=== PATIENT | female | born 1940 | race Caucasian/White ===

== ENCOUNTER → 2017-05-31 | Outpatient (CLI) | payer MEDICARE, OTHER ==
[~2017-05-31] MED LIST: ASPIRIN 81MG TA81 MG PO; CALTRATE PO; CENTRUM SILVER1 TAB PO; CITRUCEL500 MG PO; FIORICET1 CAP PO; HYDROCHLOROTH12.5 M1 PO; NORVASC 10MG. T10 MG PO; SYNTHROID 0.0.075 MG PO; TRADJENTA5 MG PO; TRICOR 145 MG145 MG PO; TYLENOL/COD #41 EAC1 PO; VITAMIN B125000 MCG SL; VITAMIN C500 M1 PO; VITAMIN D31000 IU PO; XALATAN 0.005%2.5 ML OP; [UNRECOGNIZED DRUG - OTHER] PO
--- NOTE | 2017-05-31 16:24 | RADIOLOGY REPORT PS360 ---
BONE DENSITOMETRY(HIP:LT SPINE HISTORY: POST MENOPAUSAL ORDERING PHYSICIAN: Lucia Treviño APRN PATIENT AGE: 77 years COMPARISON: None FINDINGS: The BMD measured at the forearm radius 33% is 0.656 g/sq cm with a T score of -2.6. This is consistent with osteoporosis with high fracture risk. Pharmacological treatment he started. Lumbar spine density not accurate due to sclerosis of L3 and L4. A shunt has had prior hip replacement. IMPRESSION: Osteoporosis. Recommend follow-up exam May 2018
--- NOTE | 2017-06-03 09:48 | RADIOLOGY REPORT PS360 ---
DIG MAMM-SCREEN TIARA W/CAD CAD Screening ORDERING PHYSICIAN : Lucia Treviño APRN PATIENT AGE: 77 years GENDER: Female COMPARISON: Previous mammograms: January 31 August 2012 INDICATION: Routine screening 77-year-old. No hormones no new complaints. Family history. Sister with breast cancer age 67. Also aunt TECHNIQUE: Standard CC and MLO images were obtained. R2 CAD reviewed. At it MLO views bilateral FINDINGS: Lower density breast with minimal fibroglandular elements. No dominant mass nor suspicious calcification. No new areas of concern. CAD highlights no areas of, concern either. RIGHT BREAST: Stable mammogram no new areas concern. LEFT BREAST: Very small area of density upper-outer quadrant left breast is stable since previous studies 2014 2003 IMPRESSION:... Stable bilateral mammogram. No areas of significant concern BI-RADS CATEGORY: 1_Negative RECOMMENDED FOLLOWUP: 12M 12 MONTH FOLLOW-UP (A letter has been sent to the patient regarding results of the study.)
== END ==
LOC: RAD 15:28
DX: Z78.0 Asymptomatic menopausal state (principal); Z12.31 Encounter for screening mammogram for malignant neoplasm of breast
CPT/HCPCS: G0202

== ENCOUNTER → 2017-08-10 | Outpatient (CLI) | payer MEDICARE, OTHER ==
[~2017-08-10] MED LIST changes: +AUGMENTIN1 TA1 PO; +AZELASTINE137 MCG/SP; +CARDIZEM CD240 MG PO; +CARDURA8 MG PO; +CENTRUM ADULTS1 EACH PO; +DILTIAZEM ER 1120 MG PO; +DILTIAZEM HCL90 MG PO; +FUROSEMIDE 20MG20 MG PO; +LEVAQUIN500 MG PO; +LIPITOR40 MG PO; +LOSARTAN POTAS100 MG PO; +NATURAL B COMPL PO; +OMEPRAZOLE20 MG PO; +Sodium Bicarbo650 MG NG
[2017-08-10 13:09] LABS: CORONAVIRUS 229E NOT DETECTED (NOT DETECTE); CORONAVIRUS HKU 1 NOT DETECTED (NOT DETECTE); CORONAVIRUS NL63 NOT DETECTED (NOT DETECTE); CORONAVIRUS OC43 NOT DETECTED (NOT DETECTE); RHINOVIRUS/ENTEROVIRUS NOT DETECTED (NOT DETECTE)
[2017-08-10 13:48] LABS: LYMPH # 0.6 K/mm3 (0.7-4.5); LYMPH % 10.9 % (10-50.0)
[2017-08-10 13:59] LABS: HEMOGLOBIN 9.7 g/dL (12.2-16.2)
[2017-08-10 14:09] LABS: BUN 26 mg/dL (7-18)
[2017-08-10 14:15] LABS: GFR (ESTIMATED) 19 ML/MIN (59-)
[2017-08-11 08:43] LABS: Hematocrit 28.7 % (34.0-46.6)
[2017-08-11 09:37] LABS: Vitamin B12 843 pg/mL (211-946)
[2017-08-11 10:39] LABS: Iron 22 ug/dL (27-139); Iron Saturation 10 % (15-55); UIBC 194 ug/dL (118-369)
[2017-08-11 18:40] LABS: Folate, RBC 2136 ng/mL (>498)
== END ==
LOC: CARL-LAB 09:31
PROVIDERS: Internal Medicine Adolescent Medicine; Internal Medicine Nephrology
DX: J18.0 Bronchopneumonia, unspecified organism (principal); I10 Essential (primary) hypertension; R80.9 Proteinuria, unspecified; N18.4 Chronic kidney disease, stage 4 (severe); R31.9 Hematuria, unspecified

== ENCOUNTER 2017-08-11 12:01 | Inpatient (IN) | payer MEDICARE, OTHER ==
[~2017-08-11] VITALS: Ht 165.1 cm; Wt 78.1 kg
[~2017-08-11 12:01] MED LIST changes: -AUGMENTIN1 TA1 PO; -AZELASTINE137 MCG/SP; -CARDIZEM CD240 MG PO; -CARDURA8 MG PO; -CENTRUM ADULTS1 EACH PO; -DILTIAZEM ER 1120 MG PO; -DILTIAZEM HCL90 MG PO; -FUROSEMIDE 20MG20 MG PO; -LEVAQUIN500 MG PO; -LIPITOR40 MG PO; -LOSARTAN POTAS100 MG PO; -NATURAL B COMPL PO; -OMEPRAZOLE20 MG PO; -Sodium Bicarbo650 MG NG
[2017-08-11 13:51] VITALS: BP 163/74
--- NOTE | 2017-08-11 14:03 | PHARMACY CLINIC NOTE ---
Patient Demographics Patient Demographics Admission date: 08/11/17 Date: 08/11/17 Time: 1402 Allergies Coded Allergies: tramadol (Mild, 11/05/16) HEIGHT- FT: 5 IN: 5.00 K.[id number] VTE General Information Disclaimer The following section includes nursing documentation that has been pulled in for pharmacy review. VTE prophylaxis [id number] VTE prophylaxis ordered? Yes Type of prophylaxis/treatment: JUAN C at 1402
[2017-08-11 14:10] LABS: HEMOGLOBIN 9.4 g/dL (12.2-16.2); LYMPH # 0.5 K/mm3 (0.7-4.5); LYMPH % 6.2 % (10-50.0)
[2017-08-11] MEDS ORDERED: DILTIAZEM ER 1120 MG PO (14:39)
[2017-08-11] MEDS ORDERED: CARDURA8 MG PO (14:41)
[2017-08-11] MEDS ORDERED: LIPITOR40 MG PO (14:42)
[2017-08-11] MEDS ORDERED: LOSARTAN POTAS100 MG PO (14:42)
[2017-08-11] MEDS ORDERED: Sodium Bicarbo650 MG NG (14:44)
[2017-08-11] MEDS ORDERED: FUROSEMIDE 20MG20 MG PO (14:45)
[2017-08-11] MEDS ORDERED: CENTRUM ADULTS1 EACH PO (14:46)
[2017-08-11] MEDS ORDERED: NATURAL B COMPL PO (14:48)
[2017-08-11] MEDS ORDERED: OMEPRAZOLE20 MG PO (14:48)
[2017-08-11 14:49] LABS: NEUTROPHILS 87 % (42-76)
[2017-08-11 15:35] VITALS: BP 146/69
--- NOTE | 2017-08-11 15:35 | ST BEDSIDE DYSPHAGIA EVAL ---
SUBJECTIVE-DYSPHAGIA Date: 08/11/17 Time: 1514 Eval Type: Initial Certification - Admitted Date: 08/11/17 Primary Diagnosis: DEHYDRATION Reason for Consult: DYSPHAGIA Pt/Caregiver Concerns: DETERMINE LEAST RESTRICTIVE DIET Onset of symptoms- MEDICAL HX UNKNOWN Symptoms have worsened? NO improved? NO resolved? NO since onset. Current Diet: REGULAR/THINS Allergies Coded Allergies: tramadol (Mild, 11/05/16) Uncoded Allergies: OTHER (08/11/17) A BLOOD PRESSURE MEDICINE BUT ISNT SURE THE NAME OF THE MEDICINE Home Medications Reported Medications Levothyroxine Sodium (Synthroid 0.075MG) 150 MCG PO DAILY CHOLECALCIFEROL (VITAMIN D3) (Vitamin D) 2,000 IUNITS PO BID Ascorbic Acid (Vitamin C) 500 MG PO BID Latanoprost (Xalatan 0.005% Soln,Oph) 1 DROP OP QHS DILTIAZEM HCL (Diltiazem 24HR Cd) 90 MG PO TID Doxazosin Mesylate (Doxazosin 4MG Tablet) 8 MG PO QHS Losartan Potassium (Losartan 100MG) 100 MG PO DAILY Atorvastatin Calcium (Atorvastatin) 20 MG PO DAILY Sodium Bicarbonate (Sodium Bicarbonate 650 Mg Tablet) 650 MG NG BID Furosemide (Furosemide) 20 MG FT PRN PRN FLUID Multivitamin/Iron/Folic Acid (Centrum Adults Tablet) 1 EACH PO DAILY B COMPLEX WITH VITAMIN C (Super B Complex-Vitamin C) 1 TAB PO DAILY Omeprazole (Omeprazole 20MG) 20 MG PO DAILY CA CARB 500MG/VIT D 200MG (Oyster Shell Calcium-Vit D Tab) 600 MG PO BID MULTIVIT,THER IRON,CA,FA & MIN (Sm Therapeutic M Tablet) 1 TAB PO DAILY ASPIRIN (Aspirin) 81 MG PO DAILY CYANOCOBALAMIN (VITAMIN B-12) (B-12) 5,000 MCG SL ONCE WEEKLY Acetaminophen W/Codeine #4 (Tylenol With Codeine #4 Tablet) 1 EACH PO Q4HP PRN PAIN Is this assessment r/t stroke? No OBJECTIVE COMMUNICATION/COGNITION Barriers to communication/cog? No ORAL-MOTOR STRUCTURE/FUNCTION Structure/Function WFL: Labial, Buccal, Lingual, Velar, Mandibular. Facial Asymmetry None Laryngeal Function Strong: Voluntary Cough, Throat Clearing. Vocal Quality Normal Dentition Good dentition RESPIRATORY STATUS/HISTORY Is resp status/hx a concern? No DYSPHAGIA SIGNS W/CONSISTENCY Any S/S of Dysphagia? No ASSESSMENT/PLAN ASSESSMENT Impression Ms. Steinberg, a 77 year old female, was referred for a bedside evaluation of swallowing by her physician, Dr. Verdugo. Ms. Steinberg reports no difficulties with swallowing at home prior to admission. She reports no difficulties at this time. Ms. Steinberg was given the following consistencies: thins via straw and open cup and regular. No signs of dysphagia were noted. At this time, diet modifications or therapy is warranted. Should problems continue, a MBS will need to be ordered. Thank you for this consult. PLAN RECOMMENDATIONS Further skill serv. indicated No SWALLOW GUIDELINES Standard Aspiration Prec. PATIENT/CAREGIVER EDUCATION Able-recall/restate what told? Yes RN educated on Diet Consistency Rehab Medicare G Code Plan Medicare/G Code eligible? Yes Therapy Discipline Plan: MANAGER UNDERWRITING PLAN OF CARE G Code Current Status: SWALLOWING (G8996) Current Status Modifier: 1%-19% IMPAIRED (CI) G Code Goal Status: SWALLOWING (G8997) Goal Status Modifier: 1%-19% IMPAIRED (CI) G Code Discharge Status: SWALLOWING (G8998) Discharge Status Modifier: 1%-19% IMPAIRED (CI) If pt's [facility] benefits exhausted If patient's Medicare benefits are exhausted, please review: #Min Spent: 15 at [phone]
[2017-08-11 16:00] VITALS: BP 132/80
--- NOTE | 2017-08-11 16:32 | RADIOLOGY REPORT PS360 ---
CHEST(2 VIEWS-NOT PORTABLE) HISTORY: Cough R/O PNEUMONIA ORDERING PHYSICIAN: Jase Verdugo MD PATIENT AGE: 77 years COMPARISON: None available FINDINGS: The cardiomediastinal silhouette and pulmonary vascularity are within normal limits. Port-A-Cath is present from left subclavian approach with the tip in region superior vena cava. There is increased density superior to the port. This millimeters part of the catheter. Follow-up suggested for confirmation as a underlying nodular lesion could be obscured. Increased markings are present in the right lower lung zone consistent with an area of atelectasis or infiltrate. The remaining lungs are clear. Degenerative change thoracic spine. IMPRESSION: Atelectasis or infiltrate in the right infrahilar region
--- NOTE | 2017-08-11 17:32 | HISTORY AND PHYSICAL REPORT ---
Demographics: Admit date: 08/11/17 Chief complaint: Cough PRIMARY DIAGNOSIS: DEHYDRATION Allergies: Coded Allergies: tramadol (Mild, 11/05/16) Uncoded Allergies: OTHER (08/11/17) A BLOOD PRESSURE MEDICINE BUT ISNT SURE THE NAME OF THE MEDICINE History of present illness: History of present illness: 77 yr old female with history of HTN, DM, rectal cancer and CKD direct admitted today for pneumonia with failure of outpatient therapy. She was seen in office about 10 days ago, started on Augmentin but she reports that she only took about 5 days of it because she started having hip/back pain and thought maybe it was from the antibiotics. She was seen again 2 days ago and given an injection of rocephin and steroids IM but reports no improvement today. Reports chest pain associated with coughing and difficulty resting due to cough. Labs yesterday revealed increased creatinine above baseline and she admitted for hydration and further monitoring as well. Past medical history: Immunization HX DT/Tetanus Unknown Flu Refused Pneumonia Received In Past TB Test in last year No General CAD? No Angina: No MA: No Hypertension? Yes Hyperlipidemia? No CHF? No DVT? No PE? No COPD? Yes Asthma? No Anemia? No GERD? No Gastric ulcers? No GI Bleed? Yes Hernia? No Thyroid Problems? Yes Hypothyroidism? No CVA? No Seizures? No Diabetes? No Insulin Dependent: No Insulin Pump: No Home FSBS? Yes Renal Insuffiency? No UTI? No Stones? No BPH? No GB Disease: No Nephritic Syndrome? No Asplenia? No Hepatitis? No Sickle Cell Disease? No Arthritis? Yes Migraines? No Cataracts? No Glaucoma? Yes MRSA? No HIV? No TB? No Anxiety? No Depression? No Cancer? Yes Site: COLON; BASAL CELL CARCINO Past Surgical HX Previous Surgery?Y HYSTERECTOMY GALLBLADDER LEFT HIP RIGHT HIP CANCER Resection of rectal cancer Current home meds: Reported Medications Levothyroxine Sodium (Synthroid 0.075MG) 150 MCG PO DAILY CHOLECALCIFEROL (VITAMIN D3) (Vitamin D) 2,000 IUNITS PO BID Ascorbic Acid (Vitamin C) 500 MG PO BID Latanoprost (Xalatan 0.005% Soln,Oph) 1 DROP OP QHS DILTIAZEM HCL (Diltiazem 24HR Cd) 90 MG PO TID Doxazosin Mesylate (Doxazosin 4MG Tablet) 8 MG PO QHS Losartan Potassium (Losartan 100MG) 100 MG PO DAILY Atorvastatin Calcium (Atorvastatin) 20 MG PO DAILY Sodium Bicarbonate (Sodium Bicarbonate 650 Mg Tablet) 650 MG NG BID Furosemide (Furosemide) 20 MG FT PRN PRN FLUID Multivitamin/Iron/Folic Acid (Centrum Adults Tablet) 1 EACH PO DAILY B COMPLEX WITH VITAMIN C (Super B Complex-Vitamin C) 1 TAB PO DAILY Omeprazole (Omeprazole 20MG) 20 MG PO DAILY CA CARB 500MG/VIT D 200MG (Oyster Shell Calcium-Vit D Tab) 600 MG PO BID MULTIVIT,THER IRON,CA,FA & MIN (Sm Therapeutic M Tablet) 1 TAB PO DAILY ASPIRIN (Aspirin) 81 MG PO DAILY CYANOCOBALAMIN (VITAMIN B-12) (B-12) 5,000 MCG SL ONCE WEEKLY Acetaminophen W/Codeine #4 (Tylenol With Codeine #4 Tablet) 1 EACH PO Q4HP PRN PAIN Social Hx: Smoking HX Are you/the child exposed to second-hand smoke: No Alcohol Alcohol: No Hx of Drug Use Drug Use? No Patien't marital status is Patient's support system is fair Comment: Lives alone Review of systems: Constitutional malaise, weakness. No: fever. Eyes No: no symptoms reported. Ears, Nose, Mouth, Throat No ear pain, nose discharge, nose congestion Respiratory see HPI. Cardiovascular edema (chronic right leg) Gastrointestinal/Abdominal No no symptoms reported Genitourinary frequency (chronic incontinence). Musculoskeletal back pain. Skin No: no symptoms reported. Neurological Yes: weakness. Psychiatric No: no symptoms reported. Exam: Lab data for last 24 hours: Laboratory Tests 08/11/17 1352: Sodium 142, Potassium 4.0, Chloride 106, Carbon Dioxide 23, BUN 31 H, Creatinine 2.7 H, Estimated Creat Clear 21 L, Estimated GFR (MDRD) 17 *L, Glucose 159 H, Calcium 8.5, WBC 8.0, RBC 2.99 L, Hgb 9.4 L, Hct 28.3 L, MCV 94.8, RDW 12.8, Plt Count 179, MPV 7.8, Gran % 86.7 H, Gran # 6.9, Total Counted 100, Lymphocytes % 6.2 L, Monocytes % 6.2, Eosinophils % 0.6, Basophils % 0.3, Neutrophils 87 H, Lymphocytes (Manual) 5 L, Lymphocytes # 0.5 L, Monocytes (Manual) 8, Monocytes # 0.5, Eosinophils # 0.1, Basophils # 0.0, Platelet Estimate NORMAL, PUBS MCHC 33.3, MCH 31.6 H, Mycoplasma pneumon IgM NON-REACTIVE Microbiology 08/11 1645 SPUTUM: Sputum Culture - RECD 08/11 1645 SPUTUM: Gram Stain - RECD 08/11 1645 SPUTUM: Organism ID (Sequencing 2)(DELVIS) - ORD 08/11 1352 BLOOD: Anaerobic Blood Culture - RECD 08/11 1352 BLOOD: Aerobic Blood Culture - RECD 08/11 1352 BLOOD: Anaerobic Blood Culture - RECD 08/11 1352 BLOOD: Aerobic Blood Culture - RECD Admission vital signs: 1ST Vital Signs Result Date Time Pulse Ox 94 08/11 1351 B/P 163/74 08/11 1351 O2 Delivery ROOM AIR 08/11 1351 Temp 98.3 08/11 1351 Pulse 90 08/11 1351 Resp 22 08/11 1351 O2 Flow Rate 2 08/11 1642 Additional information: Pleasant female, up on side of bed which she states is more comfortable than lying back. Mucous membranes are slightly dry. Heart rhythm is regular, pansystolic murmur. Lungs with bilateral rhonchi, loose congested cough. Abdomen soft, BS +, + ostomy output. Trace lower extremity edema. No neurologic deficits , oriented x 3 Plan: Problem List 1. CAP (community acquired pneumonia) Assessment/Plan Start renally dosed levaquin IV, sputum and blood cultures, pulmonary toilet. Gentle rehydration and monitor creatinine. Hold diuretics 2. 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 Monitor 3. Dehydration 4. CKD (chronic kidney disease) stage 4, GFR 15-29 ml/min Plan: see above at 1737
[2017-08-11 19:15] VITALS: BP 135/65
[2017-08-11 19:57] VITALS: BP 135/65
[2017-08-11] MEDS ORDERED: CARDIZEM CD240 MG PO (20:41)
[2017-08-12] VITALS (7 sets, daily range): BP systolic 112–153; BP diastolic 34–57
[2017-08-12 06:57] LABS: LYMPH # 0.7 K/mm3 (0.7-4.5); LYMPH % 14.7 % (10-50.0)
[2017-08-12 07:16] LABS: HEMOGLOBIN 7.6 g/dL (12.2-16.2)
--- NOTE | 2017-08-12 07:42 | ACUTE CARE PROGRESS NOTE (QUA) ---
Progress Notes Subjective Date 08/12/17 Time 0742 Note Overall patient states she feels better, is breathing more easily. Eating breakfast well. Lungs are clear, no rhonchi, no crackles. No edema noted. Patient is alert and talkative. Assessment/Plan Problem List 1. CAP (community acquired pneumonia) 2. Anemia, iron deficiency 3. Dehydration 4. CKD (chronic kidney disease) stage 4, GFR 15-29 ml/min Patient condition Improving Plan: continue current care, low blood counts noted. Anemia of renal disease. Check tomorrow. Try to withhold transfusion if possible. This inpt stay is expected to cross 2 MNs from start of care Yes at 0742
[2017-08-12] MEDS ORDERED: DILTIAZEM HCL90 MG PO (08:23)
[2017-08-12] MEDS ORDERED: AZELASTINE137 MCG/SP (09:33)
[2017-08-12] MEDS ORDERED: AUGMENTIN1 TA1 PO (09:35)
--- OUTSIDE RECORDS SUMMARY | 2017-08-12 12:21 | External Medical Summary Rpt ---
Author Author [facility] Organization [facility] Address Unknown Phone Unavailable Care Team Providers Care Central Supply Clerk Name Role Phone PHY, LISTED PCP Unavailable Encounter [facility] [id number] Date(s): 07/18/17 - 07/21/17 [facility] [address] [place] [address]- [phone] Discharge Disposition: OP Self Care or Home Attending Physician: KARELY REID MD-NEP Admitting Physician: KARELY REID MD-NEP Referring Physician: KARELY REID MD-NEP Reason for Visit CHRONIC KIDNEY DISEASE, STAGE 4 (SEVERE) Vital Signs Most recent 1 2 3 to oldest [Reference Range]: Temperature, 97.6 Deg F Fahrenheit (07/21/17 10:21 [96.8-99.7 AM) Deg F] Clinical 36.4 Deg C Temperature, (07/21/17 10:21 C AM) Peripheral 72 bpm (07/21/17 Pulse Rate 10:21 AM) [60-100 bpm] Heart Rate 62 bpm 64 bpm 62 bpm Monitored (07/21/17 2:45 PM) (07/21/17 2:30 PM) (07/21/17 2:15 PM) [60-100 bpm] Respiratory 16 Breaths/Min 16 Breaths/Min 16 Breaths/Min Rate [14-20 (07/21/17 12:40 (07/21/17 12:35 (07/21/17 12:30 Breaths/Min] PM) PM) PM) Blood 153/74 mmHg 160/74 mmHg 174/75 mmHg Pressure *HI* *HI* *HI* [90-140/60-9 (07/21/17 2:45 PM) (07/21/17 2:30 PM) (07/21/17 2:15 PM) 0 mmHg] Mean 100 mmHg 103 mmHg 108 mmHg Arterial (07/21/17 2:45 PM) (07/21/17 2:30 PM) (07/21/17 2:15 PM) Pressure (MAP) Mean 106 106 108 Arterial (07/21/17 2:45 PM) (07/21/17 2:30 PM) (07/21/17 2:15 PM) Pressure (MAP)-BMDI Oxygen 98 % 99 % 96 % Saturation (07/21/17 2:45 PM) (07/21/17 2:30 PM) (07/21/17 2:15 PM) [94-100 %] Oxygen Room air (07/21/17 Room air (07/21/17 Nasal cannula Therapy Mode 12:40 PM) 12:35 PM) (07/21/17 12:30 PM) Oxygen Flow 2 Liter/Min 2 Liter/Min 2 Liter/Min Rate (07/21/17 12:30 (07/21/17 12:25 (07/21/17 12:20 PM) PM) PM) Height Measured (07/21/17 Source 10:21 AM) Height Entry [place] (07/21/17 Format 10:21 AM) Height/Lengt 65 Inch (07/21/17 h FRENCH 10:21 AM) CLINICALHEIG 165.1 cm (07/21/17 HT 10:21 AM) Weight Standing scale Source (07/21/17 10:21 AM) Weight Entry [place] (07/21/17 Format 10:21 AM) Weight 171 lb (07/21/17 Green[place] lb 10:21 AM) CLINICALWEIG 77.73 kg (07/21/17 HT 10:21 AM) Body Surface 1.85 m2 (07/21/17 Area (BSA) 10:21 AM) Body Mass 28.5 kg/m2 Index [19-24 *HI*(07/21/17 kg/m2] 10:21 AM) [place] Body 57 kg (07/21/17 Weight 10:21 AM) Problem List Condition Effective Status Health Informant Dates Status Anemia(Confi Active rmed) Arthritis(Co Active nfirmed) Bronchitis(C Active onfirmed) Cancer of Active patient colon(Confir med) Cataract(Con Active firmed) Chronic Active cough(Confir med) COPD(Confirm Active ed) Diabetes Active mellitus type II(Confirmed ) Glaucoma(Con Active firmed)1 Hemorrhoids( Active Confirmed) High blood Active pressure(Con firmed) Hyperlipidem Active ia(Confirmed ) Migraine(Con Active firmed) Murmur(Confi Active rmed) Pneumonia(Co 08/20/12 Active nfirmed) Proteinuria( Active patient Confirmed) Renal Active patient disease(Conf irmed) Restless Active legs syndrome(Con firmed) thick Active corneas bilateral eyes(Confirm ed) Thyroid Active disease(Conf irmed) 1both eyes Allergies, Adverse Reactions, Alerts Substance Reaction Severity Status Norvasc swelling Active traMADol Nausea Active Sore throat Medications APAP/caffeine/codeine (Tylenol No 3) 300-30 mg Oral Every 6 Hours as needed Pain. ascorbic acid (Vitamin C 1000 mg oral tablet) 1 Tablet(s) Oral Every Day. aspirin (Maira Aspirin) 81 Milligram(s) Oral Every Day. atorvastatin 20 Milligram(s) Oral Every Day. calcium-vitamin D (Calcium 600+D) 1 tablet Oral Two Times A Day. cholecalciferol (Vitamin D3 2000 intl units oral tablet)1 Tablet(s) Oral Every Day. cyanocobalamin (Vitamin B12) Weekly. dilTIAZem 90 Milligram(s) Three Times A Day. doxazosin 8 Milligram(s) Oral At Bedtime. ferrous sulfate (ferrous sulfate 200 mg (65 mg elemental iron) oral tablet)Every Day. furosemide (Lasix) 20 Milligram(s) Every Day as needed Edema. latanoprost ophthalmic (latanoprost 0.005% ophthalmic solution)1 Drop(s) Eyes Both At Bedtime. levothyroxine 150 Microgram(s) Every Day. losartan 100 Milligram(s) Oral Every Day. multivitamin (Super B Complex) 1 Tablet(s) Oral Every Day. multivitamin with minerals (Centrum Silver) Every Day. multivitamin with minerals (One A Day Women 50 Plus)1 tablet Oral Every Day. sodium bicarbonate (sodium bicarbonate 650 mg oral tablet)1 Tablet(s) Oral Two Times A Day. Results HEMATOLOGY Most recent 1 to oldest [Reference Range]: Hgb 9.9 g/dL [11.2-15.7 *LOW* g/dL] (07/21/17 9:57 AM) Hct 29.4 % [34.1-44.9 *LOW* %] (07/21/17 9:57 AM) Platelet 153 K/uL Count *LOW* [163-369 (07/21/17 9:57 AM) K/uL] COAGULATION Most recent 1 to oldest [Reference Range]: PT [9.5-11.3 10.7 Second(s) Second(s)] (07/21/17 9:57 AM) INR 1.0 [0.0-1.1] (07/21/17 9:57 AM) Immunizations Given and Recorded Vaccine Date Status Refusal Reason pneumococcal 23-polyvalent vaccine 04/17/14 Given Procedures Procedure Date Related Body Site Diagnosis colon resection right total hip Social History Social History Response Type Smoking Status Never smoker Assessment and Plan Extracted from: Title: [email or web address] Renal Author: LEROY BREAUX, Date: 07/21/17 Biopsy Note PA Pre-OP/Procedure Diagnosis: Chronic kidney disease Post-OP/Procedure Diagnosis: Same Procedure Performed: CT guided renal biopsy Procedural MD: Heide Heat Treat Technician: Leroy Breaux PA-C Sedation: Procedural sedation Findings: Two 18-g core sample was obtained Complications: None EBL: _< 20 ml Specimen(s) Removed: Pathology is pending. Full report to follow. Hospital Discharge Instructions Patient EducationConscious Sedation, Adult, Care After Kidney Biopsy Kidney Biopsy, Care After
--- OUTSIDE RECORDS SUMMARY | 2017-08-12 12:21 | External Medical Summary Rpt ---
Author Author [facility] Organization [facility] Address Unknown Phone Unavailable Care Team Providers Care Home Help Aide Name Role Phone PHY, LISTED PCP Unavailable Encounter [facility] [id number] Date(s): 07/18/17 - 07/21/17 [facility] [address] [place] [address]- Discharge Disposition: OP Self Care or Home [...] Measured (07/21/17 Source 10:21 AM) Height Entry [place] (07/21/17 Format 10:21 AM) Height/Lengt 65 Inch (07/21/17 h [place] 10:21 AM) CLINICALHEIG 165.1 cm (07/21/17 HT 10:21 AM) Weight Standing scale Source (07/21/17 10:21 AM) Weight Entry [place] (07/21/17 Format 10:21 AM) Weight 171 lb (07/21/17 [place] lb 10:21 AM) CLINICALWEIG 77.73 kg (07/21/17 HT 10:21 AM) Body Surface 1.85 m2 (07/21/17 Area (BSA) 10:21 AM) Body Mass 28.5 kg/m2 Index [19-24 *HI*(07/21/17 kg/m2] 10:21 AM) [place] Body 57 kg (07/21/17 Weight 10:21 AM) [...] CT guided renal biopsy Procedural MD: Heide Companion: Leroy Breaux PA-C Sedation: Procedural sedation Findings: Two 18-g core sample was obtained Complications: None EBL: _< 20 ml Specimen(s) Removed: Pathology is pending. Full report to follow. Hospital Discharge Instructions Patient EducationConscious Sedation, Adult, Care After Kidney Biopsy Kidney Biopsy, Care After
--- OUTSIDE RECORDS SUMMARY | 2017-08-12 12:22 | External Medical Summary Rpt | CCD ---
Author Author , RITU CHANEY Address Unknown Phone Purpose Continuity of Care Document - through 2016
--- OUTSIDE RECORDS SUMMARY | 2017-08-12 12:22 | External Medical Summary Rpt | CCD ---
Demographics Preferred Language Tongan Marital Status Unknown Sabianism Affiliation Unknown Race Unknown Ethnic Group Unknown Author Author , RITU CHANEY Address Unknown Phone Immunization Unable to retrieve immunization data due to connection failure with Immunization Registry. Please try again later.
--- OUTSIDE RECORDS SUMMARY | 2017-08-12 12:22 | External Medical Summary Rpt | CCD ---
Demographics Preferred Language [place] Marital Status Unknown Tenriism Affiliation Unknown Race Unknown Ethnic Group Unknown Author Author , RITU CHANEY Address Unknown Phone Immunization Unable to retrieve immunization data due to connection failure with Immunization Registry. Please try again later.
--- OUTSIDE RECORDS SUMMARY | 2017-08-12 12:22 | External Medical Summary Rpt | CCD ---
Author Author , RITU CHANEY Address Unknown Phone [email or web address] Purpose Continuity of Care Document - 07-08-2017 through 2016 Problems Code Diagnosis DOS Provider Status E03.9 HYPOTHYROID 07-12-2017 ISM, UNSPECIFIED E11.22 TYPE 2 07-12-2017 DIABETES MELLITUS WITH DIABETIC CHRONIC KIDNEY DISEASE I12.9 HYPERTENSIV 07-12-2017 E CHRONIC KIDNEY DISEASE WITH STAGE 1 THROUGH STAGE 4 CHRONIC KIDNEY DISEASE, OR UNSPECIFIED CHRONIC KIDNEY DISEASE N18.4 CHRONIC 07-12-2017 KIDNEY DISEASE, STAGE 4 (SEVERE) R31.9 HEMATURIA, 07-12-2017 UNSPECIFIED R80.9 PROTEINURIA 07-12-2017 , UNSPECIFIED E11.21 TYPE 2 07-08-2017 DIABETES MELLITUS WITH DIABETIC NEPHROPATHY I10 ESSENTIAL 07-08-2017 (PRIMARY) HYPERTENSIO N Z78.0 ASYMPTOMATI C MENOPAUSAL STATE Results Labs Lab Lab Date Result Refere Interp Status Commen Order Detail nces retati t Range on Serum or plasma thyroid stimulating horm (08-10-2017 09:50) Serum 10-25-2 = 0.78 0.358-3 complet or 017 uIU/ml .740 ed plasma 09:50 thyroid stimula ting horm Serum or plasma ferritin measurement (wy (08-10-2017 09:50) Serum 10-25-2 = 191 8-388 complet or 017 ng/mL ed plasma 09:50 ferriti n measure ment (wy Basic metabolic panel (08-10-2017 09:50) Serum 10-25-2 = 142 136-145 complet sodium 017 mmoL/L ed measure 09:50 ment Serum 10-25-2 = 4.4 3.5-5.1 complet potassi 017 mmoL/L ed um 09:50 measure ment Serum 1025-2 = 138 74-106 complet or 017 mg/dL ed plasma 09:50 glucose measure ment ([facility] Estimat 08-10-2 = 19 59- complet ed 017 ML/MIN ed glomeru 09:50 lar filtrat ion rate (GF Comment: REFERENCE RANGE: >60 ML/MIN/1.73 SQUARE METERS Comment: If this patient is -Czech, then multiply the Comment: result by 1.210. Serum 10-25-2 = 2.5 0.55-1. complet or 017 mg/dL 02 ed plasma 09:50 creatin ine measure ment ( Carbon 25-2 = 24 21.0-32 complet dioxide 017 mmoL/L .0 ed 09:50 measure ment Serum 10-25-2 = 106 98-107 complet or 017 mmoL/L ed plasma 09:50 chlorid e measure ment (mo Serum 25-2 = 8.6 8.5-10. complet or 017 mg/dL 1 ed plasma 09:50 calcium measure ment (mas Serum 25-2 = 26 7-18 complet or 017 mg/dL ed plasma 09:50 urea nitroge n measure men CBC w auto diff (08-10-2017 09:50) Blood 10-25-2 = 5.3 4.8-10. complet leukocy 017 K/MM3 8 ed angie 09:50 count (number /volume ) Automat 08-10-2 = 13.0 11.5-17 complet ed 017 % .5 ed erythro 09:50 cyte distrib ution width Red 08-10-2 = 3.17 4.2-5.4 complet blood 017 M/mm3 ed cell 09:50 count Blood 08-10-2 = 180 142-424 complet platele 017 K/mm3 ed t count 09:50 Automat 08-10-2 = 8.4 7.4-10. complet ed 017 fl 4 ed blood 09:50 platele t mean volume diony [place] % 08-10-2 = 6.8 % 1.7-9.3 complet 017 ed 09:50 Absolut 10-25-2 = 0.4 0.1-1.0 complet e 017 K/mm3 ed monocyt 09:50 e count Automat 08-10-2 = 94.7 82.2-97 complet ed 017 fl .8 ed erythro 09:50 cyte mean corpusc ular v Automat 08-10-2 = 32.3 31.8-35 complet ed 017 g/dl .4 ed erythro 09:50 cyte mean corpusc ular h Mean 08-10-2 = 30.6 27-31.2 complet corpusc 017 pg ed ular 09:50 hemoglo bin ([facility]) determ Lymphoc = 10.9 10-50.0 complet yte 017 % ed count, 09:50 blood, automat ed Absolut = 0.6 0.7-4.5 complet e 017 K/mm3 ed lymphoc 09:50 yte count Blood = 9.7 12.2-16 complet hemoglo 017 g/dL .2 ed bin 09:50 measure ment (mass/v olum Blood = 30.0 37.0-47 complet hematoc 017 % .0 ed rit 09:50 (volume fractio n) Granulo = 81.0 37.0-80 complet cyte 017 % .0 ed percent 09:50 age Blood = 4.3 1.8-7.8 complet granulo 017 K/mm3 ed cytes 09:50 automat ed count (numb Automat = 1.0 % 0.1-12. complet ed 017 0 ed blood 09:50 eosinop hils/10 0 leukocy t Automat = 0.1 0.0-0.4 complet ed 017 K/mm3 ed blood 09:50 eosinop hil count Baso % = 0.3 % 0.1-2.0 complet 017 ed 09:50 Automat = 0.0 0-0.2 complet ed 017 K/MM3 ed blood 09:50 basophi l count (count/ vo
--- OUTSIDE RECORDS SUMMARY | 2017-08-12 12:22 | External Medical Summary Rpt | CCD ---
Author Author , RITU CHANEY Address Unknown Phone [email or web address]! Purpose Continuity of Care Document - 07-08-2017 [...] ting horm Serum or plasma ferritin measurement (ct (08-10-2017 09:50) Serum 10-25-2 = 191 8-388 complet or 017 ng/mL ed plasma 09:50 ferriti n measure ment (ct Basic metabolic panel (08-10-2017 09:50) Serum 10-25-2 = 142 136-145 complet sodium 017 mmoL/L ed measure 09:50 ment Serum 10-25-2 = 4.4 3.5-5.1 complet potassi 017 mmoL/L ed um 09:50 measure ment Serum 1025-2 = 138 74-106 complet or 017 mg/dL ed plasma 09:50 glucose measure ment ([facility] Estimat 08-10-2 = 19 59- complet ed 017 ML/MIN ed glomeru 09:50 lar filtrat ion rate (GF Comment: REFERENCE RANGE: >60 ML/MIN/1.73 SQUARE METERS Comment: If this patient is -[place], then multiply the Comment: result by 1.210. [...] blood 09:50 platele t mean volume diony Emanuel % 08-10-2 = 6.8 % 1.7-9.3 complet [...]
[2017-08-13 00:07] VITALS: BP 140/55
[2017-08-13 03:41] VITALS: BP 141/58
[2017-08-13 06:11] LABS: LYMPH # 0.3 K/mm3 (0.7-4.5); LYMPH % 7.2 % (10-50.0)
[2017-08-13 06:13] LABS: HEMOGLOBIN 7.9 g/dL (12.2-16.2)
[2017-08-13 07:25] VITALS: BP 163/56
--- NOTE | 2017-08-13 08:35 | DISCHARGE SUMMARY STANDARD ---
Demographics Admit date: 08/11/17 Discharge date: 08/13/17 History of present illness History of present illness 77 yr old female with history of HTN, DM, rectal cancer and CKD direct admitted today for pneumonia with failure of outpatient therapy. She was seen in office about 10 days ago, started on Augmentin but she reports that she only took about 5 days of it because she started having hip/back pain and thought maybe it was from the antibiotics. She was seen again 2 days ago and given an injection of rocephin and steroids IM but reports no improvement today. Reports chest pain associated with coughing and difficulty resting due to cough. Labs yesterday revealed increased creatinine above baseline and she admitted for hydration and further monitoring as well. Hospital Course Hospital Course: Patient was admitted, placed on intravenous levofloxacin and did well with this. She had an ongoing cough, but this seems to be a chronic problem for her since her infections process started a couple of weeks ago. She had no fevers. She was noted to have anemia, especially worse after some hydration but this stabilized with hemoglobin going up to date as 7.9 g. She had no symptoms of issues with palpitations or dyspnea. She improved in a stepwise fashion in regards to breathing and a lack of fever. This morning she was doing well. Exam revealed clearer lungs, minimal rhonchi, heart rate was regular. Abdomen soft. She be discharged home on levofloxacin. Followup with her lpn instructor in our office in 3 days. Discharge diagnoses Problem List 1. CAP (community acquired pneumonia) 2. Anemia, iron deficiency 3. Dehydration 4. CKD (chronic kidney disease) stage 4, GFR 15-29 ml/min Medications Medications: Discharge meds are as noted. Follow up Follow up in office in: 4 DAYS with: Lucia Treviño APRN at [phone]
[2017-08-13] MEDS ORDERED: LEVAQUIN500 MG PO (08:36)
[2017-08-13 09:08] VITALS: BP 163/56
[2017-08-13 10:36] LABS: NEUTROPHILS 84 % (42-76)
--- NOTE | 2017-08-15 18:20 | RADIOLOGY REPORT PS360 ---
PROCEDURE: 2-D M-mode and color Doppler study INDICATIONS FOR THE TEST: Chest pain COPD Heart Murmur Tobacco Smoking Palpitations Fatigue Syncope Edema Hypertension+Diabetes Mellitus Rheumatic Fever SOB GARCIA Obesity Hyperlipidemia Family History HD Additional History COLON,RECTAL CA, CKD, PATIENT INFORMATION HEIGHT: 65 WEIGHT:170 GENDER: Female B/P: 2-D/M-MODE INTERPRETATION: 2-D MEASUREMENTS OBSERVED VALUES IN CMS Right Ventricular Dimension (RVDd) 2.6 Interventricular Septum (Thickness)(IVsd) 0.8 Left Ventricular Internal Dimensions(LVIDd) 5.3 Left Ventricular Posterior Wall (Thickness)(LVP 1.0 Aortic Root 3.0 Aortic Cusp Separation 1.4 Left Atrial Dimensions (LAD) 4.4 2D 1. Left atrium is mildly enlarged, left ventricle is normal size, there is mild concentric left ventricular hypertrophy, visually estimated ejection fraction 55% with no obvious regional wall motion abnormality. 2. The right atrium and right ventricle are normal size and contractility. 3. The aortic valve is thickened and calcified leaflet continue to display good mobility. 4. The mitral and tricuspid valve leaflets are minimally thickened. 5. The pulmonic valve is poorly visualized. 6. No significant pericardial effusion noted. DOPPLER INTERROGATION: Doppler interrogation of the aortic, mitral and tricuspid valve reveals presence of mildly increased aortic out flow velocity does not represent any significant aortic stenosis, there is mild mitral and moderate tricuspid regurgitation, calculated right ventricular systolic pressure is 46 mmHg consistent with moderate pulmonary hypertension, grade 1 diastolic dysfunction seen with tissue Doppler evidence of raised left atrial pressure. CONCLUSION: 1. Mildly enlarged left atrium, normal left ventricular size, mild concentric left ventricular hypertrophy, visually estimated ejection fraction 55% with no obvious regional wall motion abnormality, grade 1 diastolic dysfunction seen with tissue Doppler evidence of raised left atrial pressure. 2. Thickened and calcified aortic valve without significant aortic stenosis aortic insufficiency. 3. Mild mitral and moderate tricuspid regurgitation, calculated right ventricular systolic pressure is 46 mmHg consistent with moderate pulmonary hypertension. 4. No significant pericardial effusion noted.
== END 2017-08-13 11:23 | disposition home or self-care (01) | DRG 194 ==
LOC: 2ND 12:01
PROVIDERS: Internal Medicine Adolescent Medicine
DX: J18.9 Pneumonia, unspecified organism (principal); N18.4 Chronic kidney disease, stage 4 (severe); E11.22 Type 2 diabetes mellitus with diabetic chronic kidney disease; C20 Malignant neoplasm of rectum; D63.1 Anemia in chronic kidney disease; I12.9 Hypertensive chronic kidney disease with stage 1 through stage 4 chronic kidney disease, or unspecified chronic kidney disease; J44.9 Chronic obstructive pulmonary disease, unspecified